=== PATIENT | male | born 1970 | race Caucasian/White ===

== ENCOUNTER 2023-11-08 09:30 | Day surgery (SDC) | payer OTHER ==
[2023-11-03 18:25] VITALS: BMI 43.2
[2023-11-08 09:46] VITALS: RESP 16
[2023-11-08 12:38] VITALS: TEMP 97.3
[2023-11-08 12:58] VITALS: BP 152/76; PULSE 84
== END 2023-11-08 13:00 | disposition home or self-care (01) ==
LOC: FASU-ENDO 09:30
PROVIDERS: ATTEND Internal Medicine Gastroenterology
PROC: 0DB98ZX Excision of Duodenum, Via Natural or Artificial Opening Endoscopic, Diagnostic (ICD-10-PCS; 2023-11-08)
PROC: 0DB68ZX Excision of Stomach, Via Natural or Artificial Opening Endoscopic, Diagnostic (ICD-10-PCS; 2023-11-08)
PROC: 0DJD8ZZ Inspection of Lower Intestinal Tract, Via Natural or Artificial Opening Endoscopic (ICD-10-PCS; principal; 2023-11-08 11:59)
DX: Z12.11 Encounter for screening for malignant neoplasm of colon (principal); K29.50 Unspecified chronic gastritis without bleeding; K92.0 Hematemesis; K92.1 Melena
CPT/HCPCS: 43239; G0121; 88305-TC; 88342-TC